=== PATIENT | female | born 1990 | race Caucasian/White ===

== ENCOUNTER 2016-04-27 16:25 | Emergency (ER) | payer OTHER ==
[2016-04-27 16:36] VITALS: BP 141/46
--- NOTE | 2016-04-27 16:55 | UC ---
FLU HPI - HPI Summary HPI Summary: 25 female presents with complaints of feeling fatigued, body aches, intermittent cough headache and nasal congestion that began Monday04/24/16. She states she thought she was starting to feel better until waking up this morning when she noticed she felt very flush, warm and experiencing worsening of symptoms. She has been taking Tylenol cold and sinus OTC and has had some relief. Last dose being around 3pm just prior to arrival. She took her temp and got 100.4F under her tongue. Denies nausea, vomiting, diarrhea and abdominal pain. States she has a mild sore throat that is worse at night and in the morning, however it is better throughout the day. Has been around sick contacts. - History of Current Complaint Chief Complaint: UCRespiratory Stated Complaint: SINUS,FEVER Time Seen by Provider: 04/27/16 16:36 Hx Obtained From: Patient Hx Last Menstrual Period: 3 weeks ago ?: No Onset/Duration: Sudden Onset, Lasting Days, Worse Since Severity Currently: Mild Severity Initially: Moderate Associated Signs & Symptoms: Positive: T Max - 100.4 F, Myalgia, Cough, Sore Throat, Nasal Congestion, Headache - Allergy/Home Medications Allergies/Adverse Reactions: Allergies Allergy/AdvReac Type Severity Reaction Status Date / Time No Known Allergies Allergy Verified 04/27/16 16:36 PMH/Surg Hx/FS Hx/Imm Hx Endocrine History Of: Denies: Diabetes Cardiovascular History Of: Denies: Hypertension Respiratory History Of: Denies: Asthma - Surgical History Surgical History: None - Family History Known Family History: Positive: None - Social History Alcohol Use: Weekly Substance Use Type: None Smoking Status (MU): Never Smoked Tobacco Review of Systems Constitutional: Fever, Chills, Fatigue Skin: Negative Eyes: Negative ENT: Sore Throat, Nasal Discharge Respiratory: Cough Cardiovascular: Negative Gastrointestinal: Negative Musculoskeletal: Myalgia Neurological: Headache All Other Systems Reviewed And Are Negative: Yes Physical Exam Triage Information Reviewed: Yes Appearance: Well-Appearing, No Pain Distress, Well-Nourished Vital Signs: Initial Vital Signs Temp 99.2 F 04/27/16 16:33 Pulse 113 04/27/16 16:33 Resp 14 04/27/16 16:33 BP 141/46 04/27/16 16:33 Pulse Ox 100 04/27/16 16:33 tachycardia noted Vital Signs Reviewed: Yes Eyes: Positive: Conjunctiva Clear ENT: Positive: Hearing grossly normal, Pharyngeal erythema, Nasal congestion, TMs normal. Negative: Tonsillar swelling, Tonsillar exudate Dental: Negative: Percussion Tenderness @, Cervical Lymphadenopathy Neck: Positive: Supple, Nontender, No Lymphadenopathy Respiratory: Positive: Chest non-tender, Lungs clear, Normal breath sounds, No respiratory distress Cardiovascular: Positive: RRR, No Murmur, Pulses Normal Abdomen Description: Positive: Nontender, No Organomegaly, Soft Bowel Sounds: Positive: Present Musculoskeletal: Positive: Strength Intact, ROM Intact, No Edema Neurological: Positive: Alert, Muscle Tone Normal Psychological Exam: Normal Skin Exam: Normal Flu Course/Dx - Course Course Of Treatment: not due for another dose of advil/tylenol for pain and fever. flu culture obtained and positive. patient will be treated with symptomatic treatment at this time. increase fluids. - Differential Dx/Diagnosis Differential Diagnosis/HQI/PQRI: Bronchitis, Influenza, Upper Respiratory Infection, Other Provider Diagnoses: Influenza A Discharge - Discharge Plan Condition: Stable Disposition: HOME Prescriptions: Fluticasone NASAL SPRAY 50MCG* [Flonase NASAL SPRAY 50MCG*] 2 spray BOTH NARES DAILY PRN #1 btl PRN Reason: Congestion Patient Education Materials: Influenza (ED) Referrals: [facility] [Outside] Additional Instructions: Use prescribed nasal spray daily to help with congestion. Use should also try using saline nasal rinses or christy pots to help clean out your sinuses and airways. Continue Tylenol cold and sinus while symptoms persist. Drink plenty of fluids and get lots of rest. Wash hands frequently as the flu is very contagious. If fever increases or symptoms worsen or new symptoms develop please seek medical attention.
== END 2016-04-27 17:16 | disposition home or self-care (01) ==
LOC: UCCORT 16:25
DX: J10.1 Influenza due to other identified influenza virus with other respiratory manifestations (principal)
CPT/HCPCS: 87502; 99211; G0463